=== PATIENT | male | born 1990 | race Two or more races ===

== ENCOUNTER 2016-12-07 12:28 | Emergency (ER) | payer OTHER ==
--- NOTE | 2016-12-07 13:26 | ED ---
Head Injury - HPI Summary HPI Summary: 26M presents for head injury yesterday. He hit head on a gate yesterday and had lac to front parietal area. He has a moderate headache that has been taking ibuprofen for. He admits to decreased appetite, nausea, photophobia. He denies any vomiting or blurry vision. He is not on any blood thinners and denies any recent head injury. He denies any LOC. - History Of Current Complaint Chief Complaint: EDHeadInjury Stated Complaint: FALL HEAD PAIN Time Seen by Provider: 12/07/16 13:24 Pain Intensity: 8 - Allergies/Home Medications Allergies/Adverse Reactions: Allergies Allergy/AdvReac Type Severity Reaction Status Date / Time No Known Allergies Allergy Verified 12/07/16 12:31 PMH/Surg Hx/FS Hx/Imm Hx Endocrine/Hematology History: Denies: Hx Anticoagulant Therapy Cardiovascular History: Denies: Hx Hypertension Infectious Disease History: No Infectious Disease History: Denies: Traveled Outside the [place] in Last 30 Days - Family History Known Family History: Negative: Cardiac Disease - Social History Alcohol Use: None Substance Use Type: Reports: None Smoking Status (MU): Unknown if Ever Smoked Review of Systems Negative: Fever Positive: Photophobia Negative: Chest Pain Negative: Shortness Of Breath Positive: Headache All Other Systems Reviewed And Are Negative: Yes Physical Exam Triage Information Reviewed: Yes Vital Signs On Initial Exam: Initial Vitals Temp Pulse Resp BP Pulse Ox 96.8 F 58 18 116/72 100 12/07/16 12:31 12/07/16 12:31 12/07/16 12:31 12/07/16 12:31 12/07/16 12:31 Vital Signs Reviewed: Yes Appearance: Positive: Well-Appearing Skin: Positive: Warm, Dry Head/Face: Positive: Normal Head/Face Inspection, Other - no step off, raccoon eyes, curiel sign ENT: Positive: Normal ENT inspection, Pharynx normal, TMs normal Respiratory/Lung Sounds: Positive: Clear to Auscultation, Breath Sounds Present Cardiovascular: Positive: Normal, RRR Neurological: Positive: Sensory/Motor Intact, Alert, Oriented to Person Place, Time, CN Intact II-III - [place] Coma Scale Best Eye Response: 4 - Spontaneous Best Motor Response: 6 - Obeys Commands Best Verbal Response: 5 - Oriented Diagnostics - Vital Signs Vital Signs Temp Pulse Resp BP Pulse Ox 12/07/16 12:31 96.8 F 58 18 116/72 100 - Laboratory Lab Statement: Any lab studies that have been ordered have been reviewed, and results considered in the medical decision making process. - CT neck CT Interpretation: No Acute Changes CT Interpretation Completed By: Radiologist head CT Interpretation: No Acute Changes - IMPRESSION: NO EVIDENCE FOR ACUTE INTRACRANIAL ABNORMALITY. CT Interpretation Completed By: Radiologist Head Injury Course/Dx Course Of Treatment: 26M presents with head injury yesterday. hit his head on a fence. denies any LOC. admits to nausea, photphobia and mild headache. denies any vomiting. not on blood thinners. normal neuro exam. CT head and neck normal. gave zofran and told can use zofran at [facility] and tyenlol for pain. patient understands and agrees with plan - Diagnoses Differential Diagnosis/HQI/PQRI: Cerebral Contusion, Concussion Without LOC, Intracranial Bleed Provider Diagnoses: Head injury Discharge - Discharge Plan Condition: Good Disposition: HOME Patient Education Materials: Head Injury (ED) Referrals: No Primary Care Phys,NOPCP [Primary Care Provider] - Additional Instructions: Take Tylenol for headache every 6 hours Can take zofran every 6 hours for nausea Is normal to have change in appetite, photophobia, and to be more fatigued, symptoms should improve every day Return to ED if develop vomiting, severe headache, change in behavior, or any new or worsening symptoms
--- NOTE | 2016-12-07 13:45 | RAD ---
Indication: Head injury, neck injury. Patient with dizziness. CT of the cervical spine was performed in the axial plane. Sagittal and coronal reconstructed images were obtained. The mastoid air cells are well aerated. No mucosal thickening is noted. No evidence of basilar skull fracture is noted. The C1 ring is intact. No evidence of fracture is identified. The vertebral bodies from C2 through T1 appear normal in height and alignment. Limited evaluation of C6, C7 and T1 due to body habitus is present however no evidence of malalignment is noted. No fracture is noted at any of the cervical vertebral levels. All the intervertebral foramen appear patent. The visualized facial bones including the mandible demonstrates no fracture. IMPRESSION: No fracture of the cervical spine is noted.
--- NOTE | 2016-12-07 13:46 | RAD ---
INDICATION: Head injury, headache. COMPARISON: There are no prior studies available for comparison. TECHNIQUE: Contiguous axial sections of the brain were obtained from the skull base to the vertex without contrast. FINDINGS: The ventricles, cisterns and sulci are within normal limits. No significant focal abnormality or mass effect is seen. There is no evidence for hemorrhage. No significant focal osseous abnormality is seen. The visualized portion of the paranasal sinuses and mastoid air cells appear clear. IMPRESSION: NO EVIDENCE FOR ACUTE INTRACRANIAL ABNORMALITY.
[2016-12-07] MEDS ORDERED: Ondansetron ODT TAB* 4 MG PO ONE (13:55)
[2016-12-07 14:17] VITALS: BP 114/66
== END 2016-12-07 14:13 | disposition home or self-care (01) ==
LOC: ED 12:28
DX: S09.90XA Unspecified injury of head, initial encounter (principal); R51 Headache; H53.149 Visual discomfort, unspecified; W19.XXXA Unspecified fall, initial encounter; Y93.9 Activity, unspecified; Y92.9 Unspecified place or not applicable
CPT/HCPCS: 70450; 72125; 99281; A9270-GY